=== PATIENT | male | born 1970 | race American Indian/Alaskan Native ===

== ENCOUNTER 2018-05-05 16:16 | Inpatient (IN) | payer MEDICAID ==
--- NOTE | 2018-05-05 17:16 | C.PDOC ---
History Of Present Illness Patient presents prescreened for detox. States that he drinks EtOH, takes Xanax recreationally, and uses heroin and cocaine. Admits to use of all these things 20 minutes ago. Denies SI/HI. No complaints. Time Seen by Provider: 05/05/18 16:39 Chief Complaint (Nursing): Substance Abuse Past Medical History Reviewed: Historical Data, Nursing Documentation, Vital Signs Vital Signs: Last Vital Signs Temp 97.8 F 05/05/18 16:25 Pulse 97 H 05/05/18 16:25 Resp 19 05/05/18 16:25 BP 118/76 05/05/18 16:25 Pulse Ox 96 05/05/18 16:25 - Medical History PMH: Denies: Diabetes, Hepatitis, HIV, HTN, Seizures, Sexually Transmitted Disease - [facility] Procedures DETOXIFICATION SERVICES FOR SUBSTANCE ABUSE TREATMENT (03/29/15) Family History: States: Unknown Family Hx - Social History Hx Alcohol Use: Yes Hx Substance Use: Yes - Immunization History Hx Tetanus Toxoid Vaccination: No Hx Influenza Vaccination: Yes Hx Pneumococcal Vaccination: No Review Of Systems Except As Marked, All Systems Reviewed And Found Negative. Constitutional: Negative for: Fever, Chills Cardiovascular: Negative for: Chest Pain Respiratory: Negative for: Cough, Shortness of Breath Gastrointestinal: Negative for: Nausea, Vomiting Genitourinary: Negative for: Dysuria Neurological: Negative for: Weakness Psych: Negative for: Suicidal ideation Physical Exam - Physical Exam Appears: Well, Non-toxic, No Acute Distress Skin: Normal Color, Warm, Dry Head: Atraumatic Eye(s): bilateral: Normal Inspection Cardiovascular: Rhythm Regular Respiratory: Normal Breath Sounds Gastrointestinal/Abdominal: Normal Exam Extremity: Normal ROM Neurological/Psych: Oriented x3 ED Course And Treatment - Laboratory Results Result Diagrams: 05/05/18 17:25 05/05/18 17:25 O2 Sat by Pulse Oximetry: 96 Medical Decision Making Medical Decision Making: Patient medically cleared, awaiting crisis eval. Disposition - Disposition Disposition Time: 19:00 (shift change) Condition: STABLE Forms: [facility] ([place]) - Clinical Impression Clinical Impression: Drug abuse
[2018-05-05 17:30] LABS: BASO % 0.6 % (0.0-2.0); EOS # 0.1 K/uL (0.0-0.7); EOS % 1.2 % (0.0-4.0); HEMOGLOBIN 13.7 g/dL (12.0-18.0); LYMPH # 3.5 K/uL (1.0-4.3); LYMPH % 50.1 % (20.0-40.0); MEAN CORPUSCULAR HEMOGLOBIN 29.7 pg (27.0-31.0); MEAN PLATELET VOLUME 7.7 fL (7.2-11.7); MONO # 0.4 K/uL (0.0-0.8); MONO % 5.7 % (0.0-10.0); NEUT # 2.9 K/uL (1.8-7.0); NEUT % 42.4 % (50.0-75.0); RBC 4.62 Mil/uL (4.40-5.90); RED CELL DISTRIBUTION WIDTH 14.9 % (11.5-14.5)
[2018-05-05 17:46] LABS: SQUAMOUS EPITHIAL < 1 /hpf (0-5); URINE BILIRUBIN NEGATIVE (NEGATIVE); URINE BLOOD 3+ (NEGATIVE); URINE CLARITY Clear (Clear); URINE COLOR Yellow (YELLOW); URINE GLUCOSE (UA) NORMAL (Normal); URINE LEUKOCYTE ESTERASE NEG Leu/uL (Negative); URINE PROTEIN NEGATIVE (NEGATIVE)
[2018-05-05 17:49] LABS: ALB/GLOB RATIO 1.5 (1.0-2.1); ALBUMIN 4.6 g/dL (3.5-5.0); ALT/SGPT 26 U/L (21-72); AST/SGOT 37 U/L (17-59); BLOOD UREA NITROGEN 17 mg/dL (9-20); CALCIUM 8.9 mg/dl (8.6-10.4); GFR NON-AFRICAN AMERICAN > 60
[2018-05-05 17:59] LABS: BARBITURATES, UR NEGATIVE (NEGATIVE); PHENCYCLIDINE, UR NEGATIVE (NEGATIVE)
[2018-05-05 18:00] LABS: BENZODIAZEPINES, UR POSITIVE (NEGATIVE); OPIATES, UR POSITIVE (NEGATIVE)
--- NOTE | 2018-05-05 19:33 | PCM.BM ---
<Elizabeth Delgadillo - Last Filed: 05/05/18 19:32> Treatment Plan Problems - Problems identified on initial assessmt potiential for autonomic instability related to alcohol abuse Date Initiated: 05/05/18 Time Initiated: 19:33 Assessment reference: NA Status: Active potiential for opiate withdrawal Date Initiated: 05/05/18 Time Initiated: 19:33 Assessment reference: NA Status: Active Treatment assets and liabiliti Patient Assests: ADL independent, physically healthy, cognitively intact Patient Liabilities: substance abuse, legal issue - Milieu Protocol Maintain good personal hygiene: daily Encourage regular showers, daily Remind patient to perform daily oral care, daily Assist patient to perform ADL's Maintain personal safety: every shift Educate patient to report safety concerns to staff, every shift Monitor environment for contraband/sharps Medication safety: Monitor for expected outcome, potential side effects: every shift, Assess barriers to learning: every shift, Assess readiness for medication education: every shift <Kyra Kruse - Last Filed: 05/06/18 12:15> Family Contact Family involvement: Famliy/SO not involved - Goals for Treatment Patient goals for treatment: Complete detox and apply for short-term inpatient rehab. Discharge/Continuing Care - Education Needs Education Needs: Patient Medication, Patient Diagnosis/Disease Process, Patient Coping Skills, Patient Anger Management skills, Patient Placement options, Patient Community resources, Patient Other (Risk of AMA. (Occurred upon previous admit)) - Discharge Discharge Criteria: No longer exhibiting s/s of withdrawal, Reduction of target symptoms Discharge to:: Substance Abuse Rehab - Treatment Team Participation Patient/Family/SO Statement: 05/06/18 12:15 "I have a supportive family that can take care of my mom until I get out..." Discussed with Family/SO: No Was Patient/Family/SO present at Treatment Team Meeting: Yes
[2018-05-05 21:12] VITALS: RESP 18
[2018-05-06] MEDS ORDERED: Aluminum Hydroxide/Magnesium Hydroxide Susp (30 mL) PO PRN (08:58)
[2018-05-06] MEDS ORDERED: Multiple Vitamins Tab PO SCH (10:00)
--- NOTE | 2018-05-07 00:04 | PCM.PSYCH ---
Initial Psychiatric Evaluation - Initial Psychiatric Evaluation Type of Admission: Voluntary Legal Status: Capacity Chief Complaint (in patient's own words): "I am withdrawing" History of Present Illness and Precipitating Events: The patient is seen, chart reviewed and case discussed. This is a 47-year-old -[place] male, with 2 children both adults. He lives with his sister. Unemployed. The patient admits to using 8 bags intranasally for over 35 years. He never had any all of these but describes significant withdrawal symptoms. He also drinks alcohol, 1/5 or more. He did not have seizures but came close to having DTs. He smokes cocaine and uses 3-4 Xanax is a day 1-1-1/2 tablets of 2 mg. He smokes 5 cigarettes a day also. This is a second detox and he has never been to rehab. He reports depressive symptoms. He denies suicidal ideation Baseline history: Depression Medical history: Denies Family psychiatric history: Denies Current Medications: Active Medications Generic Name Dose Route Start Last Admin Trade Name Freq PRN Reason Stop Dose Admin Al Hydrox/Mg Hydrox/Simethicone 30 ml 05/06/18 08:58 Maalox 30 Ml PO TID PRN Indigestion / Heartburn Chlordiazepoxide 25 mg 05/05/18 19:57 Librium PO Q4 PRN alcohol withdrawal Chlordiazepoxide 25 mg 05/06/18 10:00 05/06/18 21:05 Librium PO 05/11/18 09:59 Not Given Q6H KIERA Taper Clonidine HCl 0.1 mg 05/06/18 08:57 Catapres PO Q4H PRN Symptoms of alcohol withdrawl Folic Acid 1 mg 05/06/18 10:00 05/06/18 09:38 Folic Acid PO 1 mg DAILY KIERA Administration Hydroxyzine HCl 50 mg 05/06/18 22:17 Atarax PO Q6H PRN Anxiety Ibuprofen 600 mg 05/06/18 22:17 Motrin Tab PO Q6H PRN Pain, moderate (4-7) Loperamide HCl 2 mg 05/06/18 08:58 Imodium PO Q8 PRN Diarrhea Lorazepam 1 mg 05/06/18 22:19 Ativan PO Q6H PRN severe anxiety Methadone HCl 20 mg 05/07/18 10:00 Methadone PO 12/19/18 09:59 Q24H KIERA Taper Mirtazapine 15 mg 05/06/18 22:00 05/06/18 21:07 Remeron PO 15 mg HS KIERA Administration Multivitamins 1 tab 05/06/18 10:00 05/06/18 09:38 Hexavitamin PO 1 tab DAILY KIERA Administration Ondansetron HCl 4 mg 05/06/18 08:58 Zofran Tab PO Q8 PRN Nausea/Vomiting Thiamine HCl 100 mg 05/06/18 10:00 05/06/18 09:38 Vitamin B1 Tab PO 100 mg DAILY KIERA Administration Trazodone HCl 100 mg 05/05/18 19:58 Desyrel PO HS PRN insomnia Past Psychiatric History - Past Psychiatric History Previous Treatment History: None Pertinent Medical Hx (Current Medical&Sleep Prob, Allergies): Allergies Allergy/AdvReac Type Severity Reaction Status Date / Time No Known Allergies Allergy Verified 05/05/18 16:28 No Known Home Med 03/29/15 Review of Systems - Neurological Neurological: Tremor - Psychiatric Psychiatric: Abnormal Sleep Pattern, Anhedonia, Anxiety, Change in Appetite, Depression, Difficulty Concentrating, Irritability. absent: Hallucinations, Homicidal Ideation, Suicidal Ideation Mental Status Examination - Personal Presentation Personal Presentation: Looks stated age - Affect Affect: Constricted - Motor Activity Motor Activity: Calm - Reliability in Providing Information Reliability in Providing Information: Good - Speech Speech: Organized - Mood Mood: Depressed, Anxious - Formal Thought Process Formal Thought Process: No Impairment - Cognitive Functions Orientation: Person, Place, Situation, Time Sensorium: Alert Attention/Concentration: Easily distracted Abstract Thinking: [place] Estimate of Intelligence: Average Judgement: Intact, as evidence by: Insight regarding need for hospitalization Memory: Recent intact, as evidence by: Ability to recall events of the day, Remote intact, as evidenced by: Abilit to recall sig. life events - Risk Risk: Withdrawal, Diminished functioning - Strength & Assets Inventory Strength & Assets Inventory: Cooperative - Limitations Limitations: Living alone DSM 5 DX - DSM 5 DSM 5 Diagnosis: Opioid withdrawal opioid use d/o - severe Alcohol use d/o - severe Alcohol withdrawal Cocaine use d/o - severe Depressive d/o - unspecified Personality d/o - unspecified - Recommended/Plan of Treatment Treatment Recommendations and Plan of Treatment: Taper with methadone and librium Gabapentin for augmentation if needed Remeron for depression As needed medications All risks, benefits and alternatives of the meds discussed, and the pt agreed and understood. Attend groups and activities Supportive therapy and psychoeducation [place] for abstinence CBT for relapse prevention Encourage MAT Refer to rehab or IOP, and self-help groups Teach healthy lifestyle methods, i.e. diet, exercise, meditation Smoking cessation with [place] Nicotine patch if needed 34 min Projected ELOS: 4-5 days - Smoking Cessation Smoking Cessation Initiated: Yes
[2018-05-07 06:43] VITALS: BP 120/73; PULSE 67; TEMP 98.4; O2SAT 100
--- NOTE | 2018-05-07 08:14 | PCM.PYCHDC ---
Mental Status Examination - Mental Status Examination Orientation: Person, Place, Situation, Time Memory: Intact Mood: Neutral Affect: Constricted Speech: Soft Attention: WNL Concentration: WNL Association: WNL Fund of Knowledge: WNL Formal Thought Process: No Impairment Description of patient's judgement and insight: partially impaired Psychotic Thoughts and Behaviors: denies any AVH Suicidal Ideation: No Current Homicidal Ideation?: No Discharge Summary - Discharge Note Reason for Hospitalization: he patient is seen, chart reviewed and case discussed. This is a 47-year-old -English male, with 2 children both adults. He lives with his sister. Unemployed. The patient admits to using 8 bags intranasally for over 35 years. He never had any all of these but describes significant withdrawal symptoms. He also drinks alcohol, 1/5 or more. He did not have seizures but came close to having DTs. He smokes cocaine and uses 3-4 Xanax is a day 1-1-1/2 tablets of 2 mg. He smokes 5 cigarettes a day also. This is a second detox and he has never been to rehab. He reports depressive symptoms. He denies suicidal ideation Baseline history: Depression Medical history: Denies Consultations:: List each consultation separately and include: 1. Reason for request. 2. Findings. 3. Follow-up Summary of Hospital Course include:: 1. Description of specific treatment plan utilized for patients during their course of treatmen. 2. Summarize the time-c ourse for resolution of acute symptoms and/or regressed behaviors. 3. Describe issues identified and worked on during hospitalization. 4. Describe medication utilized. 5. Describe medical problems identified and treated. 6. Reassessment of suicide risk - Final Diagnosis (DSM 5) Condition upon Discharge: FAIR DSM 5: Opioid withdrawal opioid use d/o - severe Alcohol use d/o - severe Alcohol withdrawal Cocaine use d/o - severe Depressive d/o - unspecified Personality d/o - unspecified Disposition: AGAINST MEDICAL ADVICE
== END 2018-05-07 08:30 | disposition left against medical advice (07) | DRG 743 ==
LOC: C.ER 16:16 → C.7D 19:19
PROVIDERS: ADMIT Psychiatry & Neurology Psychiatry; ATTEND Psychiatry & Neurology Psychiatry
PROC: HZ2ZZZZ Detoxification Services for Substance Abuse Treatment (ICD-10-PCS; principal; 2018-05-05)
DX: F11.23 Opioid dependence with withdrawal (principal); F14.90 Cocaine use, unspecified, uncomplicated; F32.9 Major depressive disorder, single episode, unspecified; F10.231 Alcohol dependence with withdrawal delirium